=== PATIENT | male | born 1965 | race Hispanic/Latino ===

== ENCOUNTER 2017-08-08 10:40 | Emergency (ER) | payer OTHER ==
[~2017-08-08] VITALS: Ht 172.7 cm; Wt 80.7 kg
[~2017-08-08 10:40] MED LIST: LORAZEPAM0.5 MG PO; SIMVASTATIN20 MG PO
[2017-08-08] MEDS ORDERED: HYDROCODONE/APAP 7.5MG-325MG 1 EA TAB PO PRN (10:45)
[2017-08-08] MEDS ORDERED: KETOROLAC TROMETHAMINE 60 MG/2 ML VIAL IM ONE (10:45)
[2017-08-08] MEDS ORDERED: DEXAMETHASONE SOD PHOS 10 MG/1 ML VIAL INJ ONE (11:30)
--- NOTE | 2017-08-08 11:39 | Diagnostic Imaging Report ---
Left shoulder - 3 views HISTORY: Pain. COMPARISON: None available. FINDINGS: Bones: No acute displaced fracture. No expansile lytic or sclerotic lesion. Joints: The joint spaces are well-maintained. No dislocation. Soft tissues: The soft tissues appear unremarkable. IMPRESSION: No acute radiographic abnormality. Signed by: Dr. Armand Quintana M.D. on 08/08/2017 11:35 AM
== END 2017-08-08 12:15 | disposition home or self-care (01) ==
LOC: ER 10:40
DX: M25.512 Pain in left shoulder (principal)
CPT/HCPCS: 73030; 99283; J1100; J1885